=== PATIENT | female | born 1995 ===

== ENCOUNTER 2021-05-20 08:00 | Outpatient (CLI) | payer OTHER | END 2021-05-20 08:30 | disposition home or self-care (01) | LOC: PPH VACUNA 08:00 | PROVIDERS: ATTEND Emergency Medicine Pediatric Emergency Medicine | DX: Z23 Encounter for immunization (principal) ==

== ENCOUNTER 2021-08-08 11:04 | Emergency (ER) | payer OTHER ==
[~2021-08-08] VITALS: Ht 157.5 cm; Wt 59.0 kg
[2021-08-08] MEDS ORDERED: OSEL75CA PO (14:43)
[2021-08-08] MEDS ORDERED: ZITHROMAX200 MG PO (14:43)
== END 2021-08-08 15:12 | disposition home or self-care (01) ==
LOC: ER 11:04
DX: O26.892 Other specified pregnancy related conditions, second trimester (principal); B34.8 Other viral infections of unspecified site; Z3A.23 23 weeks gestation of pregnancy

== ENCOUNTER 2021-11-20 10:29 | Inpatient (IN) | payer OTHER ==
[~2021-11-20] VITALS: Ht 157.5 cm; Wt 67.6 kg
[~2021-11-20 10:29] MED LIST: OSEL75CA PO; ZITHROMAX200 MG PO
[2021-11-20] MEDS ORDERED: VALTREX1000 MG PO (10:31)
== END 2021-11-22 12:18 | disposition home or self-care (01) | DRG 807 ==
LOC: LDR 10:29 → OB/GYN 10:29
PROVIDERS: ADMIT Obstetrics & Gynecology; ATTEND Obstetrics & Gynecology
PROC: 10E0XZZ Delivery of Products of Conception, External Approach (ICD-10-PCS; principal; 2021-11-20)
PROC: 0KQM0ZZ Repair Perineum Muscle, Open Approach (ICD-10-PCS; 2021-11-20)
PROC: 4A1HXCZ Monitoring of Products of Conception, Cardiac Rate, External Approach (ICD-10-PCS; 2021-11-20)
DX: O70.1 Second degree perineal laceration during delivery (principal); Z37.0 Single live birth; Z3A.38 38 weeks gestation of pregnancy; Z20.822 Contact with and (suspected) exposure to COVID-19

== ENCOUNTER 2024-04-03 14:34 | Outpatient (CLI) | payer OTHER ==
[~2024-04-03 14:34] MED LIST changes: +VALTREX1000 MG PO
== END 2024-04-03 14:35 | disposition home or self-care (01) ==
LOC: PRENATAL 14:34
PROVIDERS: ATTEND Obstetrics & Gynecology Maternal & Fetal Medicine
DX: O36.80X0 Pregnancy with inconclusive fetal viability, not applicable or unspecified (principal); Z36.82 Encounter for antenatal screening for nuchal translucency; Z14.8 Genetic carrier of other disease; O34.10 Maternal care for benign tumor of corpus uteri, unspecified trimester; Z3A.12 12 weeks gestation of pregnancy

== ENCOUNTER → 2024-05-26 10:03 | Outpatient (CLI) | payer OTHER | END | disposition home or self-care (01) | LOC: PRENATAL 10:03 | PROVIDERS: ATTEND Obstetrics & Gynecology Maternal & Fetal Medicine | DX: O44.00 Complete placenta previa NOS or without hemorrhage, unspecified trimester (principal); O34.10 Maternal care for benign tumor of corpus uteri, unspecified trimester; Z3A.20 20 weeks gestation of pregnancy ==

== ENCOUNTER → 2024-08-22 11:10 | Outpatient (CLI) | payer OTHER | END | disposition home or self-care (01) | LOC: PRENATAL 11:10 | PROVIDERS: ATTEND Obstetrics & Gynecology Maternal & Fetal Medicine | DX: O26.849 Uterine size-date discrepancy, unspecified trimester (principal); O36.8199 Decreased fetal movements, unspecified trimester, other fetus; O36.60X0 Maternal care for excessive fetal growth, unspecified trimester, not applicable or unspecified; O34.10 Maternal care for benign tumor of corpus uteri, unspecified trimester; Z3A.35 35 weeks gestation of pregnancy ==

== ENCOUNTER 2024-10-06 07:21 | Inpatient (IN) | payer OTHER ==
[2024-10-06] VITALS (8 sets, daily range): BP systolic 107–131; BP diastolic 67–78
[~2024-10-06] VITALS: Ht 157.5 cm; Wt 71.7 kg
[2024-10-06] MEDS ORDERED: PRENATAL + DHA1 EAC1 PO (08:19)
[2024-10-06] MEDS ORDERED: RINGERS SOLUTION,LACTATED 1,000 ML IV SCH (08:45)
[2024-10-06] MEDS ORDERED: AMPICILLIN SODIUM 1,000 MG VIAL IV SCH ×2 (09:02→13:00)
[2024-10-06 09:07] LABS: PH,URINE 5.5 (5.0-8.0); URINE APPEARANCE Clear; URINE BILIRRUBIN Negative (NEGATIVE); URINE BLOOD Negative; URINE COLOR Yellow; URINE GLUCOSE Negative (NEGATIVE); URINE KETONE Negative (NEGATIVE); URINE LEUKOCYTE Negative; URINE NITRATE Negative; URINE PROTEIN Negative (NEGATIVE); URINE UROBILINOGEN 0.2 E.U./dl
[2024-10-06 09:10] LABS: URINE BACTERIA 105.1 uL (0.0-1933); URINE EPITHELIAL CELLS 5.8 uL (0.0-38.8); URINE RBC 4.1 uL (0.0-20.8); URINE WBC 8.8 uL (0.0-23.2)
[2024-10-06 09:14] LABS: URINE CAST 0.29 uL (0.0-1.40)
[2024-10-06 09:15] LABS: BASO % 0.3 % (0.1-1.2); EOS % 1.3 % (0.7-7.0); HEMATOCRIT 29.1 % (34.1-44.9); HEMOGLOBIN 9.3 g/dL (11.2-15.7); LYMPH # 2.06 (1.18-3.74); LYMPH % 27.2 % (19.3-53.1); MEAN CORPUSCULAR HEMOGLOBIN 25.5 pg (25.6-32.2); MONO # 0.68 (0.24-0.82); NEUT # 4.68 (1.56-6.13); NEUT % 61.8 % (34.0-71.1); PLATELET COUNT 225 K/uL (163-369); RED BLOOD COUNT 3.65 M/uL (3.93-5.22); RED CELL DISTRIBUTION WIDTH 14.5 % (11.6-14.4)
[2024-10-06] MEDS ORDERED: AMPICILLIN SODIUM 2,000 MG VIAL IV ONE (09:15)
[2024-10-06 09:32] LABS: INR < 0.93; PARTIAL THROMBOPLASTIN TIME 22.3 SECONDS (22.0-34.0); PROTHROMBIN TIME 10.2 SECONDS (9.0-11.5)
[2024-10-06] MEDS ORDERED: OXYTOCIN 500 ML IV SCH (10:00)
[2024-10-06 10:28] LABS: ALBUMIN 2.8 gm/dL (3.4-5.0); BILIRUBIN TOTAL 0.27 mg/dL (0.3-1.2); CALCIUM 9.2 mg/dL (8.5-10.1); CREATININE SERUM 0.73 mg/dL (0.55-1.02); GFR 92.99; GLOBULINA 3.7 G/DL (2.4-3.5); POTASSIUM 4.38 mEq/L (3.5-5.1); TOTAL PROTEIN 6.5 gm/dL (6.4-8.2)
[2024-10-06] MEDS ORDERED: CHLORHEXIDINE GLUCONATE 120 ML BOTTLE TOP ONE (16:51)
[2024-10-06] MEDS ORDERED: ERYTHROMYCIN BASE OPHT 1GM EACH TUBE OP ONE (16:51)
[2024-10-06] MEDS ORDERED: LIDOCAINE HCL 1% 10ML VIAL ONE (16:51)
[2024-10-06] MEDS ORDERED: OXYTOCIN 20 UNITS/1000ML RL PIGGYBAG IV ONE (16:51)
[2024-10-06] MEDS ORDERED: OXYTOCIN 10 UNITS/ML VIAL ONE (17:38)
[2024-10-06] MEDS ORDERED: IBUprofen 400 MG TABLET PO PRN (19:00)
[2024-10-06] MEDS ORDERED: OXYTOCIN 10 UNITS/ML VIAL IM STA (19:30)
[2024-10-06] MEDS ORDERED: CHLORHEXIDINE GLUCONATE 120 ML BOTTLE TOP SCH (19:30)
[2024-10-06] MEDS ORDERED: OXYTOCIN 1,000 ML IV SCH (19:30)
[2024-10-06 23:21] LABS: BASO % 0.2 % (0.1-1.2); EOS # 0.01 (0.04-0.54); EOS % 0.1 % (0.7-7.0); HEMATOCRIT 29.1 % (34.1-44.9); HEMOGLOBIN 9.3 g/dL (11.2-15.7); LYMPH # 1.16 (1.18-3.74); LYMPH % 5.9 % (19.3-53.1); MEAN CORPUSCULAR HEMOGLOBIN 25.2 pg (25.6-32.2); MONO % 5.6 % (4.7-12.5); NEUT # 17.32 (1.56-6.13); NEUT % 87.7 % (34.0-71.1); PLATELET COUNT 222 K/uL (163-369); RED BLOOD COUNT 3.69 M/uL (3.93-5.22); RED CELL DISTRIBUTION WIDTH 14.6 % (11.6-14.4)
[2024-10-07] VITALS: BP 105/73
[2024-10-07 08:00] VITALS: BP 116/79
[2024-10-07 16:32] VITALS: BP 109/77
[2024-10-08] VITALS: BP 116/76
[2024-10-08 08:42] VITALS: BP 107/71
[2024-10-08 09:40] VITALS: BP 106/66
== END 2024-10-08 14:49 | disposition home or self-care (01) | DRG 807 ==
LOC: LDR 07:21 → OB/GYN 18:27
PROVIDERS: ADMIT Obstetrics & Gynecology; ATTEND Obstetrics & Gynecology
PROC: 10E0XZZ Delivery of Products of Conception, External Approach (ICD-10-PCS; principal; 2024-10-06)
PROC: 4A1HXCZ Monitoring of Products of Conception, Cardiac Rate, External Approach (ICD-10-PCS; 2024-10-06)
DX: O99.824 Streptococcus B carrier state complicating childbirth (principal); Z37.0 Single live birth; Z3A.39 39 weeks gestation of pregnancy